=== PATIENT | male | born 1995 | race Two or more races ===

== ENCOUNTER 2018-02-23 09:27 | Emergency (ER) | payer BC, OTHER ==
[~2018-02-23] VITALS: Ht 182.9 cm; Wt 100.0 kg
[2018-02-23 09:33] VITALS: BP 126/75
[2018-02-23] MEDS ORDERED: ACETAMINOPHEN 325MG TABLET PO ONE (10:45)
== END 2018-02-23 13:11 | disposition home or self-care (01) ==
LOC: ER 09:46
DX: S00.83XA Contusion of other part of head, initial encounter (principal); W01.0XXA Fall on same level from slipping, tripping and stumbling without subsequent striking against object, initial encounter; Y93.89 Activity, other specified; Y92.488 Other paved roadways as the place of occurrence of the external cause; Y99.8 Other external cause status
CPT/HCPCS: 70450; 99284